=== PATIENT | male | born 2000 ===

== ENCOUNTER 2021-08-29 22:25 | Emergency (ER) | payer SELFPAY ==
[2021-08-29 23:47] VITALS: BP 124/81; PULSE 70; RESP 16; TEMP 98.2
--- NOTE | 2021-08-30 00:33 | ED ---
Recheck HPI - General Chief Complaint: Recheck/Abnormal Lab/Rx Stated Complaint: wants covid test Time Seen by Provider: 08/30/21 00:31 Source: patient, RN notes reviewed Mode of arrival: ambulatory - History of Present Illness Initial Comments: patient is a 20-year-old male that presents to the emergency department kidney a Covid test return to [facility]. Patient was otherwise well-appearing in no apparent distress. he denied any chest pain first breath headache nausea vomiting diarrhea constipation fever fatigue chills. - Related Data Allergies Allergy/AdvReac Type Severity Reaction Status Date / Time No Known Allergies Allergy Verified 08/29/21 23:44 Review of Systems ROS Statement: Those systems with pertinent positive or pertinent negative responses have been documented in the HPI. ROS Other: All systems not noted in ROS Statement are negative. Past Medical History Past Medical History: No Reported History History of Any Multi-Drug Resistant Organisms: None Reported Past Surgical History: No Surgical Hx Reported Past Psychological History: No Psychological Hx Reported Smoking Status: Former smoker Past Alcohol Use History: None Reported Past Drug Use History: None Reported General Exam General appearance: alert, in no apparent distress Head exam: Present: atraumatic, normocephalic, normal inspection Eye exam: Present: normal appearance, PERRL, EOMI. Absent: scleral icterus, conjunctival injection, periorbital swelling ENT exam: Present: normal exam, mucous membranes moist Respiratory exam: Present: normal lung sounds bilaterally. Absent: respiratory distress, wheezes, rales, rhonchi, stridor Cardiovascular Exam: Present: regular rate, normal rhythm, normal heart sounds. Absent: systolic murmur, diastolic murmur, rubs, gallop, clicks GI/Abdominal exam: Present: soft, normal bowel sounds. Absent: distended, tenderness, guarding, rebound, rigid Neurological exam: Present: alert, oriented X3 Psychiatric exam: Present: normal affect, normal mood Skin exam: Present: warm, dry, intact, normal color. Absent: rash Course Vital Signs 08/29/21 23:44 Temperature 98.2 F Pulse Rate 70 Respiratory 16 Rate Blood Pressure 124/81 O2 Sat by Pulse 100 Oximetry Medical Decision Making - Medical Decision Making 20-year-old male that Covid test return to [facility]. Covid test ordered and is negative. Patient is rolled discharge home. Case discussed with Dr. Chapa - Lab Data Lab Results 08/29/21 Range/Units 23:52 Coronavirus (PCR) Not Detected (Not Detectd) Disposition Clinical Impression: Encounter for screening for COVID-19 Disposition: HOME SELF-CARE Condition: Stable Additional Instructions: Please return to the Emergency Department if symptoms worsen or any other concerns. Is patient prescribed a controlled substance at d/c from ED?: No Referrals: Nonstaff,Physician [Primary Care Provider] - 1-2 days Time of Disposition: 00:33
== END 2021-08-30 00:43 | disposition home or self-care (01) ==
LOC: EC 22:25
DX: Z20.822 Contact with and (suspected) exposure to COVID-19 (principal); Z87.891 Personal history of nicotine dependence
CPT/HCPCS: 87635; 99282